=== PATIENT | male | born 1990 | race Caucasian/White ===

== ENCOUNTER 2020-09-26 16:47 | Emergency (ER) | payer SELFPAY ==
[2020-09-26 16:56] VITALS: BP 166/108; PULSE 93; RESP 18; TEMP 37.5; O2SAT 97; BMI 31.0
--- NOTE | 2020-09-26 17:10 | ED_ITS ---
HPI - Wound/Laceration General: Chief Complaint: Wound/Laceration Stated Complaint: Right hand is cut Time Seen by Provider: 09/26/20 17:06 History of Present Illness: HPI narrative: Patient is a 30-year-old male comes to the ED with a laceration on his right hand. Patient says [place] Immediately after injury patient rinsed it with some purified water. Patient removed some plant debris out of his wound before coming to the ED. patient has full range of motion of fingers on right hand. Denies any other injury or pain. Patient is a sure of his last tetanus and would like to get an updated tetanus today. Associated symptoms: Denies chills, fever(s), nausea or vomiting Review of Systems Const: Denies: fever(s), chills or fatigue Eyes: Denies: change in vision or eye discomfort ENMT: Denies: throat pain, odynophagia, nasal discharge or nasal congestion Card: Denies: chest pain, palpitations, edema, swelling of feet/ankles, dyspnea on exertion or orthopnea Resp: Denies: dyspnea, productive cough or non-productive cough GI: Denies: abdominal pain, nausea, vomiting, diarrhea, constipation or hematochezia : Denies: flank pain, difficulty urinating, dysuria or hematuria Musc: Denies: neck pain, back pain or extremity swelling Skin/Breast: Reports: new lesions (Laceration to palm side of right hand.); Denies: rash Neuro: Denies: headache(s), numbness in extremities or weakness in extremities Physical Exam Const: COMMON NORMALS: no acute distress, patient oriented x3 and alert GENERAL APPEARANCE: cooperative and comfortable HENMT: COMMON NORMALS: normocephalic HEAD & SCALP: normocephalic MOUTH: Normal oral and palatal mucosa present THROAT: posterior oropharynx normal and uvula midline Neck/C-Spine: COMMON NORMALS: supple GENERAL: Yes normal visual inspection Resp: COMMON NORMALS: normal respiratory effort, No retractions, No use of accessory muscles and clear to auscultation bilaterally AUSCULTATION: clear to auscultation bilaterally Cardio: COMMON NORMALS: regular rate, regular rhythm, S1 normal heart sound present, S2 normal heart sound present, No gallops present (Cardio), No clicks present (Cardio), No murmurs present (Cardio) and Peripheral pulses 2+ throughout RATE: regular rate RHYTHM: regular rhythm HEART SOUNDS: S1 normal heart sound present and S2 normal heart sound present PERIPHERAL PULSES: Peripheral pulses 2+ throughout GI: COMMON NORMALS: Normal to inspection, nondistended, normoactive bowel sounds present, Soft to palpation, non-tender and no masses PALPATION: Yes Soft to palpation : COMMON NORMALS: Yes no CVA tenderness BLADDER/KIDNEY EXAM: Yes no CVA tenderness Back/Pelvis: COMMON NORMALS: no CVA tenderness Extremity: RIGHT UPPER EXTREMITY: Yes hand & digits Right hand and digits: Yes inspection (2 cm linear laceration to palm.), Yes palpation (Tenderness over laceration), Yes ROM exam (Full range of motion in fingers) and Yes neurovascular exam (Intact) Neuro: COMMON NORMALS: patient oriented x3 and moves all extremities SENSORIUM/ORIENTATION: Yes alert Skin: NARRATIVE SKIN EXAM: Patient has a superficial laceration to palm of right hand. 2 cm and linear in length. On exam there appears to be some dark material in the wound. No active bleeding. GENERAL SKIN EXAM: dry skin Procedures Laceration Laceration 1: Site: hand (right hand (palm)) Size (cm): 2 Description: linear and clean Depth: simple, single layer Local Anesthetic: lidocaine 1% Amount of anesthesia used (mL): 10 Pre-repair: wound explored (some small plant like debris was removed from laceration) and irrigated extensively (With normal saline.) Skin layer closed with: nylon Size (cm): 4-0 Number of sutures: 6 Technique: simple, interrupted Course Vital Signs: Vital signs: Vital Signs Temperature 99.5 F 09/26/20 16:56 Pulse Rate 93 09/26/20 16:56 Respiratory Rate 18 09/26/20 16:56 Blood Pressure 166/108 09/26/20 16:56 Pulse Oximetry 97 09/26/20 16:56 MDM - Wound/Laceration Imaging Data^: Xray Ortho: Attestation: I personally reviewed and interpreted this imaging study as follows: Radiologist's impression: [address] [address] XRay Report Signed Patient: Bob Diaz Unit #: [id number] : 1990 Age/Sex: 30 / M ADM Date: 09/26/20 Loc: ER Room/Bed: Attending Dr: Ordering Provider/Ordering MD: Orville Martinez Date of Service: 09/26/20 Procedure(s): XR hand RT min 3V* 13246 Accession Number(s): [id number] Report Number: [id number] PROCEDURE INFORMATION: Exam: XR Right Hand Exam date and time: 09/26/2020 5:10 PM Age: 30 years old Clinical indication: Injury or trauma; Fall; Laceration; Hand; Right; Additional info: Cut on hand TECHNIQUE: Imaging protocol: XR Right hand. Views: 3 or more views. COMPARISON: No relevant prior studies available. FINDINGS: Bones/joints: Normal. Soft tissues: No radiopaque foreign body. XR/XR hand RT min 3V* 70095 IMPRESSION: No acute findings. Dictated By: Jed Diggs MD Signed By: Jed Diggs MD Signed Date/Time: 09/26/201813 DD/ 12 Discharge Plan Discharge Patient Disposition: Home Clinical Impression: Laceration Condition: Stable Prescriptions: New cephalexin 500 mg capsule 500 mg PO Q6H 4 Days Qty: 16 RF: 0 Discharge Orders: Discharge ED (Routine); Ordered 09/26/20 Ordered By: Orville Martinez Discharge Diet: Regular Discharge Activity: Limit activity as instructed Patient Instructions: Suture Care (ED), Laceration (ED) Activity Restrictions/Additional Instructions: Take full course of antibiotics as prescribed. Keep laceration site clean and dry for the next 48 hours. Then after that you can clean and re-bandage daily. Watch for signs of infection such as redness, warmth, increased tenderness and puslike drainage. If you see the signs of infection return to the ED, urgent care or PCP for reevaluation. call your PCP to schedule a follow-up appointment for reevaluation and suture removal in about 10 days. Follow discharge plans as discussed. You can return to the ED if symptoms worsen. Coding Level of Care Code ED Supervisor Frame Sample And Pattern for Bartolome Fwpau Exam Comprehensive
[2020-09-26] MEDS: tetanus-dipt-pertussis 0.5 mL SDV IM (17:38)
[2020-09-26] MEDS: lidocaine 1% INJ 20 mL INJECTION (17:40)
== END 2020-09-26 18:43 | disposition home or self-care (01) ==
PROVIDERS: Emergency Provider Physician Assistant
DX: S61.411A Laceration without foreign body of right hand, initial encounter (principal); W26.8XXA Contact with other sharp object(s), not elsewhere classified, initial encounter; Z23 Encounter for immunization
CPT/HCPCS: 12041; 73130; 90471; 90715; 99283